=== PATIENT | female | born 1990 | race Caucasian/White ===

== ENCOUNTER 2024-06-17 13:30 | Emergency (ER) | payer OTHER ==
[2024-06-17 13:47] VITALS: BP 126/84; PULSE 94; RESP 16; TEMP 99.4; BMI 35.6
[2024-06-17] MEDS ORDERED: IBUPROFEN 600 MG TABLET (FP) PO ONE (14:27)
[2024-06-17] MEDS ORDERED: DIPHTH,PERTUSS(ACELL),TET 0.5 ML DISP.SYRIN IM ONE (14:27)
[2024-06-17] MEDS ORDERED: LIDOCAINE HCL 2% (20ML MULTI-DOSE VIAL) ONE (14:35)
[2024-06-17] MEDS: DIPHTH,PERTUSS(ACELL),TET 0.5 ML DISP.SYRIN IM ONE (14:36)
[2024-06-17] MEDS: IBUPROFEN 600 MG TABLET (FP) PO ONE (14:37)
== END 2024-06-17 15:47 | disposition home or self-care (01) ==
LOC: JER 13:30
PROC: 0XQPXZZ Repair Left Index Finger, External Approach (ICD-10-PCS; principal; 2024-06-17)
PROC: 3E0234Z Introduction of Serum, Toxoid and Vaccine into Muscle, Percutaneous Approach (ICD-10-PCS; 2024-06-17)
DX: S61.211A Laceration without foreign body of left index finger without damage to nail, initial encounter (principal); W26.0XXA Contact with knife, initial encounter; Z23 Encounter for immunization
CPT/HCPCS: 12002-25; 73130-TC-LT-FY; 90471; 90715; 99284-25